=== PATIENT | male | born 1980 | race Native Hawaiian/Other Pacific Islander ===

== ENCOUNTER 2016-07-04 16:36 | Emergency (ER) | payer OTHER ==
[~2016-07-04] VITALS: Ht 180.3 cm; Wt 63.5 kg
[2016-07-04 15:45] VITALS: BP 182/102; TEMP 97.8
[2016-07-04 17:21] LABS: PLATELET COUNT 341 K/uL (142-355)
[2016-07-04 17:25] LABS: POTASSIUM 3.2 mmol/L (3.6-5.2); SODIUM 134 mmol/L (136-145)
== END 2016-07-04 18:38 | disposition left against medical advice (07) ==
LOC: ED 16:36
PROVIDERS: Specialist
DX: N20.0 Calculus of kidney (principal); G89.4 Chronic pain syndrome
CPT/HCPCS: 36415; 80048; 85027; 96361; 96374; 96375; 99284; J1885; J2550

== ENCOUNTER 2020-12-15 13:32 | Emergency (ER) | payer OTHER ==
[~2020-12-15] VITALS: Ht 180.3 cm; Wt 68.0 kg
[2020-12-15] MEDS ORDERED: PROZAC10 MG PO (13:54)
[2020-12-15 16:23] VITALS: BP 130/71; TEMP 98.4
== END 2020-12-15 16:23 | disposition home or self-care (01) ==
LOC: ED 13:32
DX: S80.01XA Contusion of right knee, initial encounter (principal); W01.198A Fall on same level from slipping, tripping and stumbling with subsequent striking against other object, initial encounter; Y93.89 Activity, other specified; Y92.89 Other specified places as the place of occurrence of the external cause; M25.561 Pain in right knee
CPT/HCPCS: 96372; 99283; J1885; J2175; J2550

== ENCOUNTER 2022-06-24 12:40 | Emergency (ER) | payer OTHER ==
[~2022-06-24] VITALS: Ht 180.3 cm; Wt 70.3 kg
[~2022-06-24 12:40] MED LIST: PROZAC10 MG PO
[2022-06-24 13:21] LABS: PLATELET COUNT 272 K/uL (142-355)
[2022-06-24 13:26] LABS: POTASSIUM 3.8 mmol/L (3.6-5.2)
[2022-06-24 14:20] VITALS: BP 125/71; TEMP 98.3
== END 2022-06-24 14:20 | disposition home or self-care (01) ==
LOC: ED 12:40
PROVIDERS: Emergency Medicine
DX: N20.0 Calculus of kidney (principal); Z87.442 Personal history of urinary calculi
CPT/HCPCS: 36415; 80048; 81000; 85027; 96374; 96375; 99284; J1885; J2175; J2405